=== PATIENT | female | born 1950 | race Caucasian/White ===

== ENCOUNTER 2017-01-27 07:25 | Day surgery (SDC) | payer MEDICARE, BC ==
[~2017-01-27] VITALS: Ht 162.6 cm; Wt 72.7 kg
--- NOTE | ~2017-01-27 | HP ---
PATIENT: LIVE TREVINO JANUARY MEDICAL RECORD: [id number] ACCOUNT: [id number] LOCATION:ANUP : 50 ADMISSION DATE: 01/27/17 HISTORY AND PHYSICAL EXAMINATION The patient is here for colonoscopy due to a history of colon polyps. She underwent a screening colonoscopy on 06/25/2011. The patient was found to have a 1 low rectal polyp at 2 cm. She has had no abdominal pain. No rectal bleeding. The risks, possible complications and alternatives to procedure were explained to the patient. She elects to proceed. HOME MEDICATIONS: Rythmol, Norvasc, Elestat, Synthroid. ALLERGIES: TO CALLY INHIBITORS, SULFA, CODEINE. SOCIAL HISTORY: Ex-smoker, quit in 1985. PAST MEDICAL HISTORY: History of hypertension, SVT; hypothyroidism, on replacement therapy. REVIEW OF SYSTEMS: Negative for CVA or seizures. PHYSICAL EXAMINATION GENERAL: The patient does not appear acutely ill. She does not appear chronically ill. VITAL SIGNS: Reviewed. The entire physical examination was performed in the presence of female nurse. HEAD: External ears appear normal. EYES: Extraocular movements are intact. NECK: Trachea is midline. CHEST: No intercostal retractions. PULMONARY: Nonlabored. No stridor. ABDOMEN: Nontender. EXTREMITIES: No peripheral cyanosis. IMPRESSION: History of colon polyps for surveillance colonoscopy. PLAN: Will be surveillance colonoscopy. TRANSINT:[id number] Voice Confirmation ID: [id number] DOCUMENT ID: [id number] EDDIE RODRIGUEZ MD CC: ANITA DESAI DO [id number] DICTATION DATE: 01/27/17 1023 INSTRUMENT SPECIALIST: 01/27/17 1949 [facility] 01/27/17 [place] [id number] [place] [id number]
--- NOTE | ~2017-01-27 | OP ---
PATIENT NAME: LIVE TREVINO MEDICAL RECORD: [id number] :50 LOCATION:D.OPS ADMISSION DATE: SURGEON: ROCKY RODRIGUEZ MD DATE OF OPERATION: 01/27/2017 PREOPERATIVE DIAGNOSIS: History of colon polyps. POSTOPERATIVE DIAGNOSES: History of colon polyps with no new colon polyps or masses. PROCEDURE: Total colonoscopy to the cecum. SURGEON: Rocky Rodriguez MD. SOFTWARE DEVELOPMENT ANALYST: None. BLOOD LOSS: Minimal. ANESTHESIA: IV sedation. COMPLICATIONS: None. The risks, possible complications and alternatives to the procedure were explained to the patient. She elects to proceed. ENDOSCOPIC COURSE: The patient was conveyed to the endoscopy suite electively on 01/27/2017. She was placed in the Bray position. A digital rectal examination was performed. A colonoscope was inserted through the anus. It was easily advanced to the cecum. The prep was adequate. I slowly withdrew the endoscope. A combination of normal imaging and narrow band imaging were utilized to visualize the mendoza of the large bowel. I dragged the folds. The pullback was greater than an 18-minute pullback. A retroflexed view was obtained in the rectum. I then unretroflexed the scope and removed it under direct vision. There is no need for the patient to follow up with me in the office unless she has new symptoms such as bleeding or abdominal pain. Her next colonoscopy can be scheduled for 10 years. TRANSINT:[id number] Voice Confirmation ID: [id number] DOCUMENT ID: [id number] ROCKY RODRIGUEZ MD CC: ANITA DESAI DO [id number] DICTATION DATE: 01/27/17 1058 SENIOR [employer]ACLE APPLICATIONS DEVELOPER: 01/27/172016 [facility] 01/27/17 [place] [id number]
[~2017-01-27 07:25] MED LIST: EVISTA60 MG PO; LEVOTHYROXINE75 MCG PO; NORVASC5 MG PO; PROPAFENONE HC150 MG PO
[2017-01-27 08:46] VITALS: BP 137/78; Ht 162.6 cm; Wt 72.7 kg
[2017-01-27 08:48] LABS: HEMATOCRIT 42.1 % (36.0-48.0); HEMOGLOBIN 13.3 g/dL (12-16); MCH 27.1 pg (26.0-34.0); MCHC 31.6 g/dL (31.0-37.0); MCV 85.9 fL (80.0-100.0); MEAN PLATELET VOLUME 11.2 fL (7.4-10.4); RBC 4.9 10x6/uL (4.00-5.40); RDW 14.6 % (11.5-14.5); WBC 4.7 10x3/uL (4.8-10.8)
--- NOTE | 2017-01-27 11:43 | NUR ---
1120 IV DC WITH CATHER TIP INTACT
== END 2017-01-27 11:40 | disposition home or self-care (01) ==
LOC: D.OPS 07:25
PROVIDERS: Anesthesiology
DX: Z12.11 Encounter for screening for malignant neoplasm of colon (principal); Z86.010 Personal history of colon polyps; I10 Essential (primary) hypertension; E03.9 Hypothyroidism, unspecified; Z86.718 Personal history of other venous thrombosis and embolism; Z87.891 Personal history of nicotine dependence; Z88.5 Allergy status to narcotic agent; Z88.2 Allergy status to sulfonamides; Z88.8 Allergy status to other drugs, medicaments and biological substances; Z79.899 Other long term (current) drug therapy